=== PATIENT | male | born 1965 | race Caucasian/White ===

== ENCOUNTER 2023-05-03 21:57 | Emergency (ER) | payer BC ==
[2023-05-03 22:41] VITALS: BP 130/83; PULSE 94
[2023-05-04] MEDS: Lidocaine 2% Viscous Solution 15 ML UD ONE (00:14)
[2023-05-04] MEDS: Lidocaine 2% Viscous Solution 15 ML UD TOP STA (00:14)
== END 2023-05-04 00:14 | disposition left against medical advice (07) ==
LOC: MW.ED 21:57
DX: R33.9 Retention of urine, unspecified (principal); Z90.49 Acquired absence of other specified parts of digestive tract; Z79.899 Other long term (current) drug therapy; Z88.8 Allergy status to other drugs, medicaments and biological substances
CPT/HCPCS: 51798; 99283; A9270

== ENCOUNTER 2024-11-24 08:25 | Emergency (ER) | payer SELFPAY ==
[2024-11-24 08:56] LABS: GLUCOSE,URINE 250 mg/dL (NEGATIVE); OCCULT BLOOD,URINE NEGATIVE (NEGATIVE)
[2024-11-24 09:11] LABS: APPEARANCE,URINE SLT CLOUDY
[2024-11-24 09:12] LABS: EPITHELIAL CELLS,URINE RARE (NONE-FEW)
[2024-11-24] MEDS: Acetaminophen/HYDROcodone 325-5 MG Tab PO ONE (09:25)
[2024-11-24] MEDS: Ketorolac 30 MG/ML SDV IM ONE (09:28)
[2024-11-24 09:51] VITALS: BP 146/91; PULSE 67
== END 2024-11-24 09:52 | disposition home or self-care (01) ==
LOC: MW.ED 08:25
DX: M54.41 Lumbago with sciatica, right side (principal); Z79.899 Other long term (current) drug therapy; Z88.8 Allergy status to other drugs, medicaments and biological substances; Z90.49 Acquired absence of other specified parts of digestive tract
CPT/HCPCS: 81001; 96372; 99283; A9270; 99284